=== PATIENT | female | born 2000 ===

== ENCOUNTER 2022-12-17 09:23 | Observation (INO) | payer OTHER ==
[2022-12-17] MEDS ORDERED: PREN1TAB71 OR (12:05)
== END 2022-12-17 12:15 | disposition home or self-care (01) ==
LOC: LDRP 09:23 → UNDOADMOB 09:23 → LDRP 09:50 → UNDODISOB 12:15
PROVIDERS: ADMIT Obstetrics & Gynecology; ATTEND Obstetrics & Gynecology
DX: O30.002 Twin pregnancy, unspecified number of placenta and unspecified number of amniotic sacs, second trimester (principal); Z3A.23 23 weeks gestation of pregnancy; V49.40XA Driver injured in collision with unspecified motor vehicles in traffic accident, initial encounter; Y93.89 Activity, other specified; Y92.89 Other specified places as the place of occurrence of the external cause; Y99.8 Other external cause status
CPT/HCPCS: 59025; 76815; 81002; G0378

== ENCOUNTER 2023-08-14 16:49 | Emergency (ER) | payer OTHER ==
[~2023-08-14] VITALS: Ht 165.1 cm; Wt 75.1 kg
[~2023-08-14 16:49] MED LIST: PREN1TAB71 OR
[2023-08-14] MEDS ORDERED: AMOX875T4 PO (21:44)
[2023-08-14] MEDS ORDERED: IBUP-1456 PO (21:44)
[2023-08-14] MEDS: cefTRIAXone SOD 1,000 MG VL IM ONE (22:20)
[2023-08-14 22:26] VITALS: BP 134/75; PULSE 87; RESP 18; TEMP 98.8; O2SAT 97
== END 2023-08-14 21:44 | disposition home or self-care (01) ==
LOC: ER 16:49
DX: L03.031 Cellulitis of right toe (principal); Z79.899 Other long term (current) drug therapy
CPT/HCPCS: 96372; 99283; J0696